=== PATIENT | male | born 1960 | race Asian ===

== ENCOUNTER 2019-03-30 10:37 | Inpatient (IN) | payer SELFPAY ==
[~2019-03-30] VITALS: Ht 157.5 cm; Wt 65.8 kg
[2019-03-30] MEDS ORDERED: ONDANSETRON HCL 4 MG/2 ML VIAL IV ONE (11:15)
[2019-03-30] MEDS ORDERED: MORPHINE SULFATE 4 MG/ML SYR/VIAL IV ONE (11:15)
[2019-03-30 11:18] LABS: Basophils # (auto) 0.1 uL; Basophils % (auto) 0.3 % (0.0-2.0); Eosinophils # (auto) 0 uL; Eosinophils % (auto) 0.1 % (0.0-7.0); Hematocrit 29.8 % (41.0-53.0); Hemoglobin 9.4 g/dL (13.5-17.5); Lymphocytes # (auto) 0.6 uL; Lymphocytes % (auto) 3.8 % (10.0-50.0); Mean Corpuscular Hemoglobin 27.5 pg (28.0-32.0); Mean Corpuscular Hgb Conc. 31.6 g/dL (32.0-36.0); Mean Corpuscular Volume 86.8 fL (80.0-100.0); Monocytes # (auto) 0.7 uL; Monocytes % (auto) 4.1 % (0.0-12.0); Neutrophils # (auto) 15.5 uL; Neutrophils % (auto) 91.7 % (37.0-80.0); Platelet Count (auto) 168 10^3/uL (140-450); Red Blood Cells 3.43 10^6/uL (4.5-5.90); Red Cell Distribution Width 19.7 % (11.8-14.3); White Blood Cell 16.9 10^3/uL (4.4-10.8)
[2019-03-30 11:36] LABS: Albumin 2.3 g/dL (3.4-5.0); Calcium 8.4 mg/dL (8.5-10.1); Potassium 4.3 mmol/L (3.5-5.1)
[2019-03-30 11:39] LABS: BUN/Creatinine Ratio 33.6; Bilirubin, Total 1.1 mg/dL (0.2-1.0); Total Protein 8.3 g/dL (6.4-8.2)
[2019-03-30] MEDS ORDERED: MORPHINE SULF INJ 2 MG/ML SYRINGE 1ML IV PRN (12:30)
[2019-03-30] MEDS ORDERED: NITROGLYCERIN 0.4 MG SL TAB SL PRN (12:30)
[2019-03-30 13:55] LABS: INR 1.2 (0.9-1.15)
--- NOTE | 2019-03-30 14:30 | NUR ---
Telemetry admit from ER DA SILVESTRE admitted to Telemetry unit after SBAR received. Patient oriented to Zoya Bah, primary RN, unit, room, bed, and unit policies regarding patient care and visiting hours. Patient now on continuous telemetry monitoring, tele box #70 and telemetry reading on arrival to unit is ]. Patient placed on bedside oxygen, weighed by bedscale and encouraged to call if they need something. All questions and concerns addressed, patient verbalized understanding. Note: [] Addendum: 03/30/19 at 1511 by Zoya Bah RN NOTE WAS NOT FULL COMPLETED. Telemetry reading on arrival to unit is sinus tach 114. Patient placed on bedside oxygen, weighed by bedscale and encouraged to call if they need something. Bed locked in lowest position, call light within reach, side rails up x2, bed alarm on for safety. All questions and concerns addressed, patient verbalized understanding.
[2019-03-30 14:48] VITALS: BP 134/110
--- NOTE | 2019-03-30 15:15 | NUR ---
IV removal IV DC'd with clean sterile technique, catheter fully intact. Pressure dressing applied to site. Patient tolerated well. NOTE: [right AC leaking/painful]
[2019-03-30 15:18] VITALS: BP 134/110
[2019-03-30] MEDS: HYDROmorphone HCL 2 MG/ML VL IV PRN ×2 (15:20→20:28)
--- NOTE | 2019-03-30 15:35 | NUR ---
IV insertion IV access obtained, via clean sterile technique by inserting 22 gauge catheter at left hand after 2 attempt(s). IV secured properly. No trauma to site. Patient tolerated well.
--- NOTE | 2019-03-30 15:39 | NUR ---
Patient taken off the unit for procedure. No distress upon departure.
--- NOTE | 2019-03-30 15:42 | NUR ---
Patient back to room. Procedure will now be done bedside.
--- NOTE | 2019-03-30 16:00 | NUR ---
Dr. Aguayo at bedside Paracentesis started. No distress noted. Vitals stable: BP 128/98, HR 112, RESP 16, O2 98%
--- NOTE | 2019-03-30 16:30 | NUR ---
Paracentesis in process Vitals remain stable: BP 120/89, HR 120, RESP 16, O2 99% No distress noted.
--- NOTE | 2019-03-30 16:45 | NUR ---
Paracentesis complete. 6100 L removed, one bottle was sent to the lab for pathology. Vitals stable: BP 124/99, HR 119, RESP 16, O2 100%. Patient tolerated well, no s/s of distress. Addendum: 03/30/19 at 1908 by Zoya Bah RN CORRECTION 6.1L IGOR COLORED ASCITES FLUID REMOVED
[2019-03-30] MEDS: PIPERACILLIN-TAZOB 3.375GM 100 ML IV SCH (17:43)
--- NOTE | 2019-03-30 18:33 | NUR ---
PATIENT ROUNDS PATIENT APPEARS TO BE SLEEPING, RESTING WITH EYES CLOSED. NO S/S OF DISTRESS NOTED. WILL ENDORSE CARE TO RN CASE MANAGEMENT RN.
--- NOTE | 2019-03-30 19:50 | NUR ---
Opening Shift Note Assumed care of patient, awake and alert. No S/S of distress/SOB. Patient was in pain 8/10, i administered Dilaudid 1mg prn. Instructed on POC and to call for assist PRN, will continue to monitor for changes Q1hr and PRN.
[2019-03-30] MEDS ORDERED: FAMOTIDINE (10MG/ML) 2ML VL IV SCH (22:00)
[2019-03-31] MEDS: PIPERACILLIN-TAZOB 3.375GM 100 ML IV SCH ×2 (00:36→05:31)
[2019-03-31] MEDS: HYDROmorphone HCL 2 MG/ML VL IV PRN ×5 (00:45→20:53)
[2019-03-31] MEDS: ONDANSETRON HCL 4 MG/2 ML VIAL IV PRN (05:31)
[2019-03-31 05:59] VITALS: BP 105/78
[2019-03-31 06:04] LABS: Basophils # (auto) 0.1 uL; Basophils % (auto) 0.6 % (0.0-2.0); Eosinophils # (auto) 0 uL; Hematocrit 30.3 % (41.0-53.0); Hemoglobin 9.9 g/dL (13.5-17.5); Lymphocytes # (auto) 0.5 uL; Lymphocytes % (auto) 3.2 % (10.0-50.0); Mean Corpuscular Hemoglobin 28.3 pg (28.0-32.0); Mean Corpuscular Hgb Conc. 32.7 g/dL (32.0-36.0); Mean Corpuscular Volume 86.5 fL (80.0-100.0); Monocytes # (auto) 0.7 uL; Monocytes % (auto) 4.1 % (0.0-12.0); Neutrophils # (auto) 15.4 uL; Neutrophils % (auto) 92.1 % (37.0-80.0); Nucleated Red Blood Cells % 0.1 %; Platelet Count (auto) 169 10^3/uL (140-450); Red Cell Distribution Width 19.5 % (11.8-14.3); White Blood Cell 16.8 10^3/uL (4.4-10.8)
[2019-03-31 06:20] LABS: Potassium 5.5 mmol/L (3.5-5.1)
[2019-03-31 06:32] LABS: Albumin 2.1 g/dL (3.4-5.0); Bilirubin, Total 1.5 mg/dL (0.2-1.0); Calcium 8.1 mg/dL (8.5-10.1); Total Protein 7.6 g/dL (6.4-8.2)
--- NOTE | 2019-03-31 07:25 | NUR ---
Opening Shift Note Assumed care of patient, appears to be sleeping, resting in bed with eyes closed, awoken by name. No S/S of distress/SOB, no pain noted or reported. Respirations are even and unlabored on 2L O2 via NC. Updated on POC and instructed to call for assistance PRN, patient verbalized understanding. Bed locked in lowest position, side rails up x2, call light within reach, bed alarm on. Will continue to monitor for changes Q1hr and PRN.
[2019-03-31 09:00] VITALS: BP 99/83
[2019-03-31] MEDS: FAMOTIDINE (10MG/ML) 2ML VL IV SCH (10:13)
[2019-03-31] MEDS ORDERED: traMADol HCL 50 MG TAB PO PRN (12:00)
[2019-03-31] MEDS: Ensure Enlive Strawberry 8oz Bottle PO SCH ×2 (12:00→17:35)
--- NOTE | 2019-03-31 12:10 | NUR ---
Patient downgraded to M/S Tele monitor removed and sent to ICU per MD orders.
[2019-03-31] MEDS: SODIUM CHLORIDE 0.9% 1,000 ML IV SCH (12:18)
[2019-03-31 12:59] VITALS: BP 102/68
[2019-03-31 17:00] VITALS: BP 92/71
--- NOTE | 2019-03-31 18:52 | NUR ---
PATIENT ROUNDS PATIENT RESTING IN BED WATCHING TELEVISION. NO S/S OF DISTRESS NOTED. WILL ENDORSE CARE TO EXTRACTOR PLANT OPERATOR RN.
--- NOTE | 2019-03-31 19:50 | NUR ---
Opening Shift Note Assumed care of patient, awake and alert. No S/S of distress/SOB. Patient stated to be in pain 02/13 will administer his prn pain medication. Instructed on POC and to call for assist PRN, will continue to monitor for changes Q1hr and PRN.
[2019-03-31 22:00] VITALS: BP 108/78
[2019-04-01] MEDS: HYDROmorphone HCL 2 MG/ML VL IV PRN ×6 (01:16→22:27)
[2019-04-01] MEDS: ONDANSETRON HCL 4 MG/2 ML VIAL IV PRN (01:22)
[2019-04-01] MEDS: SODIUM CHLORIDE 0.9% 1,000 ML IV SCH ×2 (04:40→14:18)
[2019-04-01 05:46] VITALS: BP 108/65
[2019-04-01 06:11] LABS: Basophils # (auto) 0 uL; Basophils % (auto) 0.2 % (0.0-2.0); Eosinophils # (auto) 0 uL; Eosinophils % (auto) 0.2 % (0.0-7.0); Hemoglobin 9.3 g/dL (13.5-17.5); Lymphocytes # (auto) 0.4 uL; Mean Corpuscular Hemoglobin 28.2 pg (28.0-32.0); Mean Corpuscular Hgb Conc. 33.3 g/dL (32.0-36.0); Mean Corpuscular Volume 84.7 fL (80.0-100.0); Monocytes # (auto) 0.8 uL; Monocytes % (auto) 4.4 % (0.0-12.0); Neutrophils # (auto) 16.8 uL; Neutrophils % (auto) 93.2 % (37.0-80.0); Platelet Count (auto) 142 10^3/uL (140-450); Red Cell Distribution Width 19.4 % (11.8-14.3)
[2019-04-01 06:28] LABS: Albumin 1.9 g/dL (3.4-5.0); Calcium 7.6 mg/dL (8.5-10.1); Potassium 5.2 mmol/L (3.5-5.1)
[2019-04-01 06:31] LABS: BUN/Creatinine Ratio 31.7; Bilirubin, Total 1.4 mg/dL (0.2-1.0)
--- NOTE | 2019-04-01 06:55 | NUR ---
CRITICAL LAB OF [facility]. [facility] ABOUT THE CRITICAL LAB. SOFÍA RADER WAS MADE AWARE. NO NEW ORDERS PLACE. WILL CONTINUE TO MONITOR AND ENDORSE INFORMATION TO MORNING SHIFT.
[2019-04-01] MEDS: Ensure Enlive Strawberry 8oz Bottle PO SCH ×3 (08:20→17:35)
[2019-04-01 09:00] VITALS: BP 97/71
[2019-04-01] MEDS: cefTRIAXone 1GM/50ML D5W 50 ML IV SCH (09:04)
[2019-04-01] MEDS: FAMOTIDINE (10MG/ML) 2ML VL IV SCH (10:21)
[2019-04-01 13:00] VITALS: BP 110/80
--- NOTE | 2019-04-01 13:30 | NUR ---
assessment re: fior consult for DC planning Patient is a 59 year old male who is alert and oriented. Prior to admission patient resided at [facility] [phone] and functioned with assistance from staff and [facility]. Patient informed me he was released from senior care on 02/08/19 after 8 years and was taken to [facility]. Patient was put on hospice from there and sent to [facility]. Patient informed me he will return home to [facility] with his family on discharge. Family to transport him home. Per Dr Guadarrama patient will not return to hospice on discharge with [facility]. I informed patient he has a right to speak to a long term care social worker regarding all care. I informed patient he has a right to participate in any and all discharge planning. Patient does not have a POA and advanced directive. I have offered patient information on POA and advanced directives. I informed the patient the advantages and benefits of having an Advanced Directive. Patient verbalized understanding and agreed to discharge plan. Addendum: 04/01/19 at 1334 by Chely VILLALOBOS Amended: Links added.
[2019-04-01 17:00] VITALS: BP 105/77
--- NOTE | 2019-04-01 19:30 | NUR ---
Opening Shift Note Received report from Glenys RICHARDS. Assumed care of patient, awake and alert. Infection Prevention Coordinator and family at bedside. No S/S of distress. Patient requested oxygen to be on 4L. Bed locked in lowest position, side rails upx2, call light within reach. Instructed on POC and to call for assist PRN, will continue to monitor for changes Q1hr and PRN.
[2019-04-01 21:00] VITALS: BP 113/80
--- NOTE | 2019-04-01 21:34 | NUR ---
ROUNDS Patient asleep at this time. No s/s of distress/SOB. Chest rise even and respirations unlabored. Will continue to monitor.
[2019-04-02] MEDS: HYDROmorphone HCL 2 MG/ML VL IV PRN ×5 (02:39→20:34)
[2019-04-02] MEDS: SODIUM CHLORIDE 0.9% 1,000 ML IV SCH ×3 (02:40→19:45)
[2019-04-02 04:30] VITALS: BP 108/78
--- NOTE | 2019-04-02 06:48 | NUR ---
IV insertion IV access obtained, via clean sterile technique by inserting 22 gauge catheter at right forearm after 4 attempt(s). IV secured properly. No trauma to site. Patient tolerated well.
--- NOTE | 2019-04-02 06:49 | NUR ---
ROUNDS Patient asleep at this time. No s/s of distress/SOB. Chest rise even and respirations unlabored. Will continue to monitor.
[2019-04-02] MEDS: Ensure Enlive Strawberry 8oz Bottle PO SCH ×3 (08:00→17:58)
[2019-04-02 09:00] VITALS: BP 115/81
[2019-04-02] MEDS: cefTRIAXone 1GM/50ML D5W 50 ML IV SCH (10:15)
[2019-04-02] MEDS: FAMOTIDINE (10MG/ML) 2ML VL IV SCH (10:15)
[2019-04-02 13:00] VITALS: BP 112/83
--- NOTE | 2019-04-02 13:41 | NUR ---
NUTRITION ASSESSMENT NOTES Please refer to link notes of nutrition screen form filed under the intervention section of the plan of care for further details. Est. Needs: 1650 kcal to 1950 kcal (30-35 kcal/kgBW), 66 gms to 99 gms pro (1.2-1.8 gms/kgBW d/t CA, severe hypoalbuminemia). Will continue to monitor pertinent labs and reassess nutrient need prn Thank you. Addendum: 04/02/19 at [address] Amended: Links added.
[2019-04-02 17:00] VITALS: BP 110/80
--- NOTE | 2019-04-02 19:34 | NUR ---
OPENING NOTES RECEIVED REPORT FROM DAY SHIFT NURSE, QUIRINO. PT IS ALERT AND ORIENTATED X 4 WITH NO S/S OF DISTRESS NOR SOB. PT REPORT PAIN 7/10 IN THE ABDOMEN. KIMBALL CATHETER IS IN PLACE, PATENT, DRAINING AND BELOW BLADDER. BED BRAKES ARE LOCKED AND CALL LIGHT IS WITH IN REACH. BED IS IN LOWEST POSITION AND SIDE RAILS ARE UP X 2. HOB IS 30 DEGREES. DISCUSSED POC WITH PATIENT AND PT VERBALIZED UNDERSTANDING.
[2019-04-02 22:00] VITALS: BP 120/82
[2019-04-03] MEDS: HYDROmorphone HCL 2 MG/ML VL IV PRN ×6 (00:18→20:39)
[2019-04-03] MEDS: SODIUM CHLORIDE 0.9% 1,000 ML IV SCH ×2 (06:05→15:45)
--- NOTE | 2019-04-03 07:31 | NUR ---
CLOSING NOTES ENDORSED CARE TO DAY SHIFT NURSEALVARO.
[2019-04-03 08:00] VITALS: BP 123/84
[2019-04-03] MEDS: Ensure Enlive Strawberry 8oz Bottle PO SCH ×3 (08:00→18:22)
[2019-04-03] MEDS: FAMOTIDINE (10MG/ML) 2ML VL IV SCH (11:40)
[2019-04-03 12:00] VITALS: BP 122/84
[2019-04-03 17:01] VITALS: BP 122/78
--- NOTE | 2019-04-03 18:00 | NUR ---
Pt alert and oriented, showing no change from initial assessment. Pt showing very poor appetite. Pt medicated with Dilaudid, times 3 during this shift, for c/o "severe" abdominal pain, with good effectiveness. Pt denies nausea, no emesis. V.S.S., resp even, unlabored.
--- NOTE | 2019-04-03 19:20 | NUR ---
Opening Shift Note Assumed care of patient, awake and alert. Currently on 3L NC with no S/S of distress or SOB. Reports 10/10 abdominal pain. Pain management options discussed with patient. Bowie catheter is hung below the level of the bladder and is draining yellow urine with minimal sediment. Instructed on POC and to call for assist PRN, will continue to monitor for changes Q1hr and PRN.
[2019-04-03 20:00] VITALS: BP 126/76
[2019-04-03] MEDS: ONDANSETRON HCL 4 MG/2 ML VIAL IV PRN (20:40)
[2019-04-03 22:37] VITALS: BP 126/76
[2019-04-04] MEDS: HYDROmorphone HCL 2 MG/ML VL IV PRN ×6 (00:16→21:01)
--- NOTE | 2019-04-04 00:16 | NUR ---
Patient refusing turning d/t pain. States "this feels better", referring to laying supine with HOB elevated. Educated patient on the importance of turning to maintain skin integrity. Patient still declines at this time.
[2019-04-04] MEDS: SODIUM CHLORIDE 0.9% 1,000 ML IV SCH ×2 (03:30→11:45)
[2019-04-04 05:04] VITALS: BP 111/75
[2019-04-04] MEDS: ONDANSETRON HCL 4 MG/2 ML VIAL IV PRN ×2 (06:25→21:01)
[2019-04-04 07:50] LABS: BUN/Creatinine Ratio 38.8; Calcium 7.5 mg/dL (8.5-10.1); Potassium 5.5 mmol/L (3.5-5.1)
[2019-04-04] MEDS: Ensure Enlive Strawberry 8oz Bottle PO SCH ×3 (08:06→18:00)
[2019-04-04 08:20] LABS: Basophils # (auto) 0.1 uL; Basophils % (auto) 0.3 % (0.0-2.0); Eosinophils # (auto) 0 uL; Hematocrit 29.3 % (41.0-53.0); Hemoglobin 9.7 g/dL (13.5-17.5); Lymphocytes # (auto) 0.4 uL; Lymphocytes % (auto) 2.2 % (10.0-50.0); Mean Corpuscular Hemoglobin 28.5 pg (28.0-32.0); Mean Corpuscular Volume 86.3 fL (80.0-100.0); Monocytes # (auto) 0.8 uL; Monocytes % (auto) 4.3 % (0.0-12.0); Neutrophils # (auto) 16.6 uL; Neutrophils % (auto) 93.2 % (37.0-80.0); Nucleated Red Blood Cells % 0.1 %; Platelet Count (auto) 121 10^3/uL (140-450); Red Cell Distribution Width 19.9 % (11.8-14.3); White Blood Cell 17.8 10^3/uL (4.4-10.8)
[2019-04-04 09:00] VITALS: BP 125/88
--- NOTE | 2019-04-04 09:00 | NUR ---
IV removal IV's DC'd with to left hand and right forearm with sterile technique, catheter fully intact. Pressure dressing applied to site. Patient tolerated procedure well. IV insertion IV access obtained, via clean sterile technique by inserting 22 gauge catheter at right forearm after one attempt. IV secured properly. No trauma to site. Patient tolerated procedure well.
[2019-04-04] MEDS: FAMOTIDINE (10MG/ML) 2ML VL IV SCH (09:57)
[2019-04-04 13:16] VITALS: BP 125/82
[2019-04-04] MEDS ORDERED: SODIUM ZIRCONIUM CYCL 10 GM PAK PO ONE (15:30)
[2019-04-04 17:24] VITALS: BP 116/77
[2019-04-04] MEDS: Pro-Stat SF 30ml Vanilla PO SCH (18:09)
--- NOTE | 2019-04-04 19:10 | NUR ---
OPENING SHIFT NOTE Assumed care of patient who is alert and oriented. Currently on 3L NC with no s/s of SOB or distress. Reports 4/10 pain at this time. Patient is on bedrest due to severe weakness and pain. 2+ pitting edema noted in LLE. Bowie catheter is in place and draining light mirza urine with sediment to gravity. Patient repositioned onto left side. Bed is in low locked position with side rails up x2. Call light is within reach. Patient encouraged to call for assistance when needed. Will continue to monitor for changes PRN.
--- NOTE | 2019-04-04 21:00 | NUR ---
PAIN Patient medicated for pain and nausea as ordered.
[2019-04-04 21:13] VITALS: BP 108/78
--- NOTE | 2019-04-04 22:30 | NUR ---
ROUNDS Patient is resting comfortably with eyes closed. Feet elevated on pillow due to edema in LLE. Will continue to monitor for changes PRN.
--- NOTE | 2019-04-04 23:47 | NUR ---
Rounds Patient is alert and oriented, sitting up in bed. Ice chips provided as requested. Bed alarm on for patient safety.
--- NOTE | 2019-04-05 01:30 | NUR ---
Patient medicated for pain per orders. Ice chips provided as requested. Will continue to monitor for changes PRN.
[2019-04-05] MEDS: SODIUM CHLORIDE 0.9% 1,000 ML IV SCH ×3 (01:33→17:45)
[2019-04-05] MEDS: HYDROmorphone HCL 2 MG/ML VL IV PRN ×5 (01:33→22:20)
--- NOTE | 2019-04-05 02:45 | NUR ---
ROUNDS Patient is resting with eyes closed. Respirations are non-labored. No distress noted.
[2019-04-05 05:07] VITALS: BP 113/87
[2019-04-05 07:12] LABS: Anion Gap 15 (5-15); Calcium 7.8 mg/dL (8.5-10.1); Carbon Dioxide 12 mmol/L (21-32); Chloride 95 mmol/L (98-107); Glucose 108 mg/dL (74-106); Sodium 122 mmol/L (136-145)
[2019-04-05 07:16] LABS: BUN/Creatinine Ratio 36.7; GFR African American 34 mL/min; GFR Non-African American 28 mL/min
[2019-04-05 07:22] LABS: Potassium 5.8 mmol/L (3.5-5.1)
[2019-04-05 07:23] LABS: Blood Urea Nitrogen 91 mg/dL (7-18)
--- NOTE | 2019-04-05 07:25 | NUR ---
Received call from lab regarding BUN of 91 and K+ of 5.8. Hospitalist paged to report critical labs. Awaiting call back.
--- NOTE | 2019-04-05 07:30 | NUR ---
Received call from Steven Castor NP. New order to D/C all future labs.
[2019-04-05 07:44] LABS: Basophils # (auto) 0 uL; Basophils % (auto) 0.1 % (0.0-2.0); Eosinophils # (auto) 0 uL; Hematocrit 36.2 % (41.0-53.0); Lymphocytes # (auto) 0.3 uL; Lymphocytes % (auto) 2.2 % (10.0-50.0); Mean Corpuscular Hemoglobin 28.7 pg (28.0-32.0); Mean Corpuscular Hgb Conc. 30.4 g/dL (32.0-36.0); Mean Corpuscular Volume 94.3 fL (80.0-100.0); Monocytes # (auto) 0.6 uL; Monocytes % (auto) 4.1 % (0.0-12.0); Neutrophils # (auto) 13.4 uL; Neutrophils % (auto) 93.6 % (37.0-80.0); Nucleated Red Blood Cells % 0.1 %; Platelet Count (auto) 102 10^3/uL (140-450); Red Blood Cells 3.84 10^6/uL (4.5-5.90); White Blood Cell 14.3 10^3/uL (4.4-10.8)
[2019-04-05 07:48] LABS: Red Cell Distribution Width 21.5 % (11.8-14.3)
[2019-04-05 08:44] VITALS: BP 126/56
[2019-04-05] MEDS: FAMOTIDINE (10MG/ML) 2ML VL IV SCH (09:54)
[2019-04-05] MEDS: Ensure Enlive Strawberry 8oz Bottle PO SCH ×2 (09:55→12:34)
[2019-04-05] MEDS: Pro-Stat SF 30ml Vanilla PO SCH ×2 (09:56→18:00)
--- NOTE | 2019-04-05 10:45 | NUR ---
ATUL FROM [facility] ROUTED TO GIFT SHOP MANAGER DEPT FOR PAPERWORK ACQUISITION FOR POSSIBLE PLACEMENT.
--- NOTE | 2019-04-05 13:05 | NUR ---
DR. BERG IN TO SEE PT. PLAN OF CARE DISCUSSED, HOSPICE STATUS DISCUSSED.
[2019-04-05 13:43] VITALS: BP 122/91
[2019-04-05 17:32] VITALS: BP 118/92
--- NOTE | 2019-04-05 18:31 | NUR ---
D/C Planning Per SS consult for Hospice. MAURICE Barton advised me Pt sign with [facility] on Friday. Contacted [facility] Ph:) Fax:) faxed medical records. Per Usha from [facility] referral was received and placement for Pt is still pending and she will follow up with me tomorrow morning.
--- NOTE | 2019-04-05 19:25 | NUR ---
OPENING SHIFT NOTE Assumed care of patient who is alert and oriented. Currently on 3L NC with no s/s of SOB/distress or pain. Patient is on bedrest due to severe weakness and pain. 2+ pitting edema noted in LLE, and 1+ pitting edema on RLE. Bowie catheter is in place and draining light mirza urine with sediment to gravity. Patient repositioned onto back for comfort. Will continue q2h turns. Bed is in low locked position with side rails up x2. Call light is within reach. Patient encouraged to call for assistance when needed. Will continue to monitor for changes PRN.
[2019-04-05 22:00] VITALS: BP 105/78
[2019-04-06] MEDS: HYDROmorphone HCL 2 MG/ML VL IV PRN ×4 (01:29→23:51)
[2019-04-06] MEDS: SODIUM CHLORIDE 0.9% 1,000 ML IV SCH ×3 (03:45→23:45)
[2019-04-06 05:31] VITALS: BP 117/88
[2019-04-06] MEDS: Pro-Stat SF 30ml Vanilla PO SCH ×2 (07:57→17:13)
--- NOTE | 2019-04-06 08:00 | NUR ---
OPENING SHIFT NOTE Assumed care of patient who is alert and oriented. Currently on nc with no s/s of SOB or distress. Denies any pain or discomfort at this time. POC discussed with patient who verbalizes understanding. Patient encouraged to continue turning in bed to maintain skin integrity and strength. Bed is in low locked position with side rails up x2. Will continue to monitor for changes PRN. Call light within reach.
[2019-04-06 08:20] VITALS: BP 121/94
[2019-04-06] MEDS: FAMOTIDINE (10MG/ML) 2ML VL IV SCH (09:44)
[2019-04-06 12:58] VITALS: BP 117/86
[2019-04-06 16:27] VITALS: BP 112/84
--- NOTE | 2019-04-06 19:20 | NUR ---
OPENING SHIFT NOTE Assumed care of patient who is alert and oriented. Currently on 3L NC with no s/s of SOB/distress or pain. Patient is on bedrest due to severe weakness and pain. Bilateral lower extremities elevated on pillows d/t 2+ pitting edema. Bowie catheter is in place and draining light mirza urine. Patient repositioned onto right side for comfort. Will continue q2h turns. Bed is in low locked position with side rails up x2. Call light is within reach. Patient encouraged to call for assistance when needed. Will continue to monitor for changes PRN.
--- NOTE | 2019-04-06 22:00 | NUR ---
Full linen/gown change Skin integrity assessed for any changes. Linens changed. Patient repositioned for comfort.
[2019-04-06 22:45] VITALS: BP 114/79
[2019-04-07] VITALS (7 sets, daily range): BP systolic 102–112; BP diastolic 80–86
--- NOTE | 2019-04-07 03:55 | NUR ---
PAIN PATIENT VERBALIZES ABDOMINAL PAIN, RATING IT A 7/10 WILL MEDICATE PER ORDER
[2019-04-07] MEDS: HYDROmorphone HCL 2 MG/ML VL IV PRN ×4 (04:00→21:12)
--- NOTE | 2019-04-07 07:15 | NUR ---
OPEN SHIFT NOTE RECEIVED REPORT ON PATIENT. PATIENT AWAKE AND ALERT, LAYING IN SEMI FOWLERS POSITION. DISCUSSED POC WITH PATIENT. PATIENT VERBALIZED UNDERSTANDING. PT COMPLAINED OF PAIN TO ABD AREA, DISCUSSED PAIN MANAGEMENT. BED IN LOWEST POSITION, 2 SIDE RAILS UP, BED LOCKED AND CALL LIGHT WITH IN REACH OF PT.
--- NOTE | 2019-04-07 07:40 | NUR ---
CARE ENDORSED TO DEEDEE RICHARDS
[2019-04-07] MEDS: Pro-Stat SF 30ml Vanilla PO SCH ×2 (08:00→18:00)
[2019-04-07] MEDS: FAMOTIDINE (10MG/ML) 2ML VL IV SCH (10:33)
--- NOTE | 2019-04-07 12:02 | NUR ---
Nutrition Follow-up Notes Wt.: 58.6 kg Pt. has very poor appetite and intake has been negligible between 0-50% x 3 days. Pt. underwent paracentesis procedure with 6100 mL output since previous assessment. On hospice for further medical management. Continues with GI distress (abdominal pain) that is managed through pain medications Est. Needs: 1650 kcal to 1950 kcal (30-35 kcal/kgBW), 66 gms to 99 gms pro (1.2-1.8 gms/kgBW d/t CA, severe hypoalbuminemia). Will continue to monitor pertinent labs and reassess nutrient need prn Labs: K 5.8H, BUN 91H (trending up), Cr 2.48H, BG 108H, Ca 7.8L, ALB 1.9L Skin: Dylan 14, mod risk GI: No BM since admission, +abdominal pain and distension PES: 1.) Altered nutrition related lab values RT acute/chronic medical condition AEB hyperglycemia, hyponatremia, hyperkalemia, hypochloremia, elev. renal labs, LFTs, hyperbilirubinemia, hypocalcemia and severe hypoalbuminemia (ongoing) 2.) Increased nutrient needs RT altered GI functions AEB Ascites,Metastatic cancer to liver,Intractable abdominal pain, severe hypoalbuminemia, on ONS with <75% consumed meals. (ongoing) Monitor: Weight trends, labs, skin integrity, GI function, PO intake PO intake to meet >50% estimated needs by following assessment. F/U: MR 3-5 days Rec. 1) Continue 2 gm Na, Soft, low fat diet as ordered and as tolerated. Provide food preferences as able and as tolerated 2) Continue POC as ordered
[2019-04-07] MEDS: SODIUM CHLORIDE 0.9% 1,000 ML IV SCH ×2 (16:32→19:45)
--- NOTE | 2019-04-07 17:00 | NUR ---
Pain Management During patient rounds, when asked if patient is in pain and if he would like some more pain medication, patient states "no not yet". Encouraged patient to press call light if feeling pain. Patient verbalized understanding. Will continue to monitor.
--- NOTE | 2019-04-07 18:47 | NUR ---
Closing Note Patient lying in bed, shows no signs of distress at this time. Patient still stating they do not want pain medication. Bed in lowest locked position, side rails up x2 and call light within reach.
--- NOTE | 2019-04-07 19:23 | NUR ---
OPENING SHIFT NOTE Assumed care of patient who is awake, alert and oriented. Currently on 3L NC with no s/s of SOB/distress or pain. Bilateral lower extremities elevated on pillows d/t 2+ pitting edema. Bowie catheter is in place and draining light mirza urine. Patient repositioned onto right side for comfort. Will continue q2h turns. Bed is in low locked position with side rails up x2. Call light is within reach. Patient encouraged to call for assistance when needed. Will continue to monitor for changes PRN.
--- NOTE | 2019-04-07 21:00 | NUR ---
PAIN UPON ROUNDING, PATIENT MOANING, STATES HE IS IN PAIN, HOWEVER UNABLE TO RATE IT. WILL ASSESS AND ADMINISTER PAIN MED PER ORDER
[2019-04-08] MEDS: HYDROmorphone HCL 2 MG/ML VL IV PRN ×6 (02:37→21:52)
[2019-04-08 05:00] VITALS: BP 108/84
[2019-04-08] MEDS: SODIUM CHLORIDE 0.9% 1,000 ML IV SCH ×2 (05:56→16:05)
[2019-04-08] MEDS: Pro-Stat SF 30ml Vanilla PO SCH ×2 (07:44→17:42)
--- NOTE | 2019-04-08 08:00 | NUR ---
Opening Shift Note Assumed care of patient, awake, alert and oriented X4. Patient is primarily Sami speaking but is able to understand Lebanese. No S/S of distress/SOB or pain. Right upper chest wall hector cath, open to air, not accessed.IV to right forearm, 22 gauge, patent and infusing 0.9% NS @ 100 ml/hr. Instructed on POC and to call for assist PRN, nodded head in understanding. bed locked, in lowest position, call light within reach, will continue to monitor for changes Q1hr and PRN.
[2019-04-08 09:00] VITALS: BP 146/93
[2019-04-08] MEDS: FAMOTIDINE (10MG/ML) 2ML VL IV SCH (11:29)
[2019-04-08] MEDS: ONDANSETRON HCL 4 MG/2 ML VIAL IV PRN (11:36)
[2019-04-08] MEDS ORDERED: TRAM50TA2 PO (12:37)
[2019-04-08 13:00] VITALS: BP 140/104
--- NOTE | 2019-04-08 16:00 | NUR ---
D/C planning Followed up call to [facility] spoke to Shweta. Per Shweta Pt does not have a social security on field and she spoke to Man GUY regarding insurance. Shweta from [facility] stated Man GUY advised her Pt insurance was deny and he will do an appeal.
[2019-04-08 17:00] VITALS: BP 120/100
--- NOTE | 2019-04-08 19:00 | NUR ---
Opening Shift Note Assumed care of patient, awake and alert. No S/S of distress/SOB or pain. Instructed on POC and to call for assist PRN, will continue to monitor for changes Q1hr and PRN.
--- NOTE | 2019-04-08 19:12 | NUR ---
Care endorsed to MAURICE Haas, night nurse.
[2019-04-08 22:31] VITALS: BP 102/83
[2019-04-09] MEDS: SODIUM CHLORIDE 0.9% 1,000 ML IV SCH ×2 (01:45→12:40)
[2019-04-09] MEDS: HYDROmorphone HCL 2 MG/ML VL IV PRN ×6 (04:12→21:33)
[2019-04-09 05:29] VITALS: BP 109/73
[2019-04-09] MEDS: Pro-Stat SF 30ml Vanilla PO SCH ×2 (08:00→18:00)
--- NOTE | 2019-04-09 08:00 | NUR ---
OPENING NOTE ASSUMED CARE OF PATIENT AWAKE AND IN MILD DISTRESS. PT IS TACHYPNEIC, GROANING, AND GRIMACING. WILL MEDICATE PATIENT PER MAR AND MD ORDER. BED IS IN LOWEST, LOCKED POSITION WITH SIDE RAILS UP X2, CALL LIGHT WITHIN REACH AND BED ALARM ON FOR SAFETY. WILL CONTINUE TO MONITOR Q1H AND PRN.
[2019-04-09] MEDS: FAMOTIDINE (10MG/ML) 2ML VL IV SCH (08:58)
[2019-04-09] MEDS: ONDANSETRON HCL 4 MG/2 ML VIAL IV PRN ×3 (08:58→21:32)
[2019-04-09 09:00] VITALS: BP 116/68
--- NOTE | 2019-04-09 11:30 | NUR ---
AT BEDSIDE DR. BERG AT BEDSIDE.
[2019-04-09 13:00] VITALS: BP 99/75
[2019-04-09 17:00] VITALS: BP 94/71
--- NOTE | 2019-04-09 19:15 | NUR ---
Received patient in bed resting, [address] at 3L n/c. Patient responds when called, turned and repositioned. Call cedeno with in reach, bed in low position.
[2019-04-09 22:00] VITALS: BP 92/66
--- NOTE | 2019-04-10 00:38 | NUR ---
Noted patient with 02 nasal cannula off during rounds, reminded frequently to keep 02 on.
[2019-04-10] MEDS: SODIUM CHLORIDE 0.9% 1,000 ML IV SCH ×3 (01:15→19:41)
[2019-04-10 05:00] VITALS: BP 93/70
[2019-04-10] MEDS: HYDROmorphone HCL 2 MG/ML VL IV PRN ×3 (07:58→14:08)
[2019-04-10] MEDS: ONDANSETRON HCL 4 MG/2 ML VIAL IV PRN ×2 (07:58→14:08)
--- NOTE | 2019-04-10 08:00 | NUR ---
OPENING SHIFT NOTE ASSUMED CARE OF PT. PT IS AWAKE AND ALERT. PAIN MEDICATION ADMINISTERED. NO SOB OR SIGNS OF DISTRESS NOTED. INSTRUCTED ON POC AND TO CALL FOR ASSISTANCE IF NEEDED. BED IN LOWEST POSITION WITH SIDE RAILS UP X2. WILL CONTINUE TO MONITOR.
[2019-04-10] MEDS: Pro-Stat SF 30ml Vanilla PO SCH ×2 (08:06→19:41)
[2019-04-10 09:00] VITALS: BP 87/54
[2019-04-10] MEDS: FAMOTIDINE (10MG/ML) 2ML VL IV SCH (11:51)
[2019-04-10 12:34] VITALS: BP 87/57
--- NOTE | 2019-04-10 14:14 | NUR ---
Nutrition Follow-up Notes Wt.: 64.5 kg based on bed scale as of yesterday. Pt's on oxygen via nasal cannula, asleep, no immediate family member at bedside during rounds this morning. Pt still in pain with has very poor food intake, per nursing. Pt's currently on Soft 2 gms Na, Low Fat diet with Prostat 1 pkt BID, has inadequate PO intake aeb <25% ave. consumed meals (x3) in last 3 days d/t pt refused, per nursing. Noted pt's for possible hospice care. Est. Needs: 1650 kcal to 1950 kcal (30-35 kcal/kgBW), 66 gms to 99 gms pro (1.2-1.8 gms/kgBW d/t CA, severe hypoalbuminemia). Will continue to monitor pertinent labs and reassess nutrient need prn Labs: No new labs since 04/05/19 Gluc 108 H, Na 122 L, K 5.8 H, BUN 91 H, Cr 2.48 H,Ca 7.8 L, Tpro 6.3 L, Alb 1.9 L Skin: Dylan 12, high risk, skin intact per manufacturing engineer supervisor. GI: Pt's no bowel activity since 03/30/19 per manufacturing engineer supervisor. PES: 1.) Altered nutrition related lab values RT acute/chronic medical condition AEB hyperglycemia, hyponatremia, hyperkalemia, hypochloremia, elev. renal labs, LFTs, hyperbilirubinemia, hypocalcemia and severe hypoalbuminemia (ongoing) 2.) Increased nutrient needs RT altered GI functions AEB Ascites,Metastatic cancer to liver,Intractable abdominal pain, severe hypoalbuminemia, on ONS with <75% consumed meals. (ongoing) Will continue to monitor PO intake, skin status, pertinent labs and weight trend. F/u in 3 to 5 days. Rec.: 1.) Continue close supervision and feeding assistance prn during meals. 2.) Consider Ensure Enlive 1 carton BID if pt's PO intake remains inadequate (<75%). 3.) If pt's unable to tolerate oral diet, consider alternate nutrition support if medically appropriate. 4.) Refer pt to RD for further nutrition education and weight monitoring upon discharge. 5.) Continue current plan of care.
[2019-04-10 16:50] VITALS: BP 81/29
--- NOTE | 2019-04-10 17:30 | NUR ---
SPOKE TO DR MATTHEWS. REPORTED CURRENT VITAL SIGNS. GAVE VERBAL ORDERS. WILL CARRY OUT.
--- NOTE | 2019-04-10 19:15 | NUR ---
Received patient in bed alert and responsive, keeps closing eyes, very weak. Call cedeno with in reach, Bed in low position.
--- NOTE | 2019-04-10 20:30 | NUR ---
B/P 67/28, HR 76, 97% RA, RR 24.
--- NOTE | 2019-04-10 20:55 | NUR ---
B/P 50/32, HR48 labored breathing. Hospitalist paged.
[2019-04-10 21:40] VITALS: BP 71/40
[2019-04-10] MEDS ORDERED: SODIUM CHLORIDE 0.9% 500 ML IV ONE (22:30)
--- NOTE | 2019-04-10 22:30 | NUR ---
Hospitalist called back, notified of low b/p, new order received to give NS 500ml IV bolus.
--- NOTE | 2019-04-10 22:31 | NUR ---
NS 500ml IV bolus started.
--- NOTE | 2019-04-11 00:05 | NUR ---
B/P after NS 500ml bolus is 65/33, HR 59. Hospitalist paged.
--- NOTE | 2019-04-11 00:52 | NUR ---
Hospitalist called back, notified of patient's repeat B/P . Patient on continuous NS at 100ml/hr. Patient remains awake and alert, breathing labored. Asked patient if he wants to talk to , patient shook his head.
[2019-04-11 05:12] VITALS: BP 58/29
[2019-04-11] MEDS: SODIUM CHLORIDE 0.9% 1,000 ML IV SCH (06:51)
[2019-04-11 07:30] VITALS: BP 52/16
--- NOTE | 2019-04-11 07:50 | NUR ---
OPENING SHIFT NOTE ASSUMED CARE OF PT. PT ASLEEP IN BED. NOTIFIED DR OF MORNING VITALS. BED IN LOWEST POSITION WITH SIDE RAILS UP X2. WILL CONTINUE TO MONITOR.
--- NOTE | 2019-04-11 08:10 | NUR ---
NOTIFIED DR OF MORNING VITAL SIGNS. GAVE ORDER FOR COMFORT CARE. WILL PLACE AND CARRY OUT.
--- NOTE | 2019-04-11 10:35 | NUR ---
WAS NOTIFIED OF PTS DECREASING HEART RATE BY TELE MONITORS. WILL CONTINUE TO MONITOR.
--- NOTE | 2019-04-11 10:45 | NUR ---
PT IN ASYSTOLE. NOTIFIED DR MATTHEWS.
--- NOTE | 2019-04-11 10:50 | NUR ---
DR MATTHEWS AT BEDSIDE. ASSESSED PATIENT. TIME OF WAS 1050.
--- NOTE | 2019-04-11 11:00 | NUR ---
CALLED [facility] PER PROTOCOL. PT WAS RELEASED AND RECEIVED CASE NUMBER. CALLED CORONERS OFFICE. PT RELEASED AND RECEIVED CASE NUMBER.
--- NOTE | 2019-04-11 12:15 | NUR ---
MADE ATTEMPTS TO CONTACT PT FAMILY MEMBERS BY POLICY CHANGE CLERK. PHONE CALLS UNANSWERED. DESIGNATED REVERED CALLED BUT HAD NO INFORMATION. WILL CONTINUE TO ATTEMPT CONTACT.
--- NOTE | 2019-04-11 13:40 | NUR ---
PT RECEIVED POST MORTEM CARE. IV REMOVED AND INTACT. KIMBALL CATHETER REMOVED AND INTACT. TAKEN TO MORTUARY BY NURSING STAFF.
== END 2019-04-11 13:35 | disposition expired | DRG 871 ==
LOC: ER 10:37 → EDBD 10:37 → TELE 10:38 → TELE-WESTW 13:57 → WEST WING 03-31 12:28
PROVIDERS: ADMIT Nurse Practitioner Acute Care; ATTEND Internal Medicine
PROC: 0W9G3ZZ Drainage of Peritoneal Cavity, Percutaneous Approach (ICD-10-PCS; principal; 2019-03-30)
DX: A41.9 Sepsis, unspecified organism (principal); E43 Unspecified severe protein-calorie malnutrition; N17.0 Acute kidney failure with tubular necrosis; C78.7 Secondary malignant neoplasm of liver and intrahepatic bile duct; E87.1 Hypo-osmolality and hyponatremia; R18.8 Other ascites; C23 Malignant neoplasm of gallbladder; Z66 Do not resuscitate; D64.9 Anemia, unspecified; Z68.26 Body mass index [BMI] 26.0-26.9, adult; E87.5 Hyperkalemia; K72.90 Hepatic failure, unspecified without coma; N18.9 Chronic kidney disease, unspecified; Z51.5 Encounter for palliative care; Z99.81 Dependence on supplemental oxygen
CPT/HCPCS: 10022; 36415; 74176; 76705; 76942; 80048; 80053; 83690; 83986; 85025; 85610; 85730; 87040; 87205; 89051; 94761; 96365; 96375; G0378; J0696; J2405; J2543; J3490